=== PATIENT | male | born 1985 | race American Indian/Alaskan Native ===

== ENCOUNTER 2021-02-28 06:45 | Emergency (ER) | payer SELFPAY ==
[2021-02-28 09:18] LABS: BUN/Creatinine Ratio 13; Blood Urea Nitrogen 12 mg/dL (9-20); Calcium 9.1 mg/dL (8.4-10.2); Hemolysis Index 2
[2021-02-28 09:26] LABS: Basophils % (Auto) 0.3 % (0.0-1.8); Eosinophils # (Auto) 0.1 K/mm3 (0.0-0.4); Eosinophils % (Auto) 0.7 % (0.0-4.3); Hemoglobin 15.1 gm/dl (11.8-15.2); Lymphocytes # (Auto) 1.2 K/mm3 (1.2-5.4); Lymphocytes % (Auto) 7.9 % (13.4-35.0); Mean Corpuscular HGB Conc 34 % (32-34); Mean Corpuscular Volume 80 fl (84-94); Monocytes # (Auto) 2.1 K/mm3 (0.0-0.8); Monocytes % (Auto) 13.3 % (0.0-7.3); Platelet Count 274 K/mm3 (140-440); Red Blood Count 5.51 M/mm3 (3.65-5.03); Red Cell Distribution Width 13.7 % (13.2-15.2)
[2021-02-28] MEDS ORDERED: KETOROLAC 30 MG/1 ML INJ IV ONE (10:39)
--- NOTE | 2021-02-28 10:51 | Emergency Department Report ---
ED ENT HPI - General Chief complaint: Dental/Oral Stated complaint: SWOLLEN JAW/TOOTHACHE Time Seen by Provider: 02/28/21 10:36 Source: patient Mode of arrival: Ambulatory Limitations: No Limitations - History of Present Illness Initial comments: 36-year-old male presents to ED with toothache x2 days. Patient reports onset of left facial swelling on yesterday. Patient had a telemedicine appointment on yesterday and was given a prescription for Augmentin. Patient states he has taken 2 pills so far, since yesterday. Patient denies any fever. Patient states he has an appointment with the dentist in 2 days, on Tuesday. Patient woke up this morning with increased left facial swelling so he came to the ED for evaluation. MD complaint: tooth pain -: days(s) (2) Location: tooth # (19) Severity: severe Quality: aching Consistency: constant Improves with: none Worsens with: none Context- Dental: poor dental care Associated Symptoms: toothache. denies: fever - Related Data Allergies Allergy/AdvReac Type Severity Reaction Status Date / Time No Known Allergies Allergy Unverified 02/28/21 07:08 ED Dental HPI - General Chief complaint: Dental/Oral Stated complaint: SWOLLEN JAW/TOOTHACHE Time Seen by Provider: 02/28/21 10:36 Source: patient Mode of arrival: Ambulatory Limitations: No Limitations - Related Data Allergies Allergy/AdvReac Type Severity Reaction Status Date / Time No Known Allergies Allergy Unverified 02/28/21 07:08 ED Review of Systems ROS: Stated complaint: SWOLLEN JAW/TOOTHACHE Other details as noted in HPI Comment: All other systems reviewed and negative Constitutional: denies: fever ENT: as per HPI Gastrointestinal: denies: nausea, vomiting ED Past Medical Hx - Past Medical History Previous Medical History?: No - Surgical History Past Surgical History?: No - Social History Smoking Status: Current Every Day Smoker Substance Use Type: Alcohol ED Physical Exam - General Limitations: No Limitations General appearance: alert, in no apparent distress - Head Head exam: Present: atraumatic, normocephalic - Eye Eye exam: Present: normal appearance, EOMI - ENT ENT exam: Present: other (tooth #17 w/ caries present, tooth decayed down to the gum line, tender to percusssion; left mandibular swelling/induration present; no SUBmandibular induration on the right or left side; no submental induration; no elevation of tongue; slight trismus) - Neck Neck exam: Present: normal inspection - Respiratory Respiratory exam: Present: normal lung sounds bilaterally. Absent: respiratory distress - Cardiovascular Cardiovascular Exam: Present: normal rhythm, tachycardia - GI/Abdominal GI/Abdominal exam: Present: soft. Absent: distended, tenderness - Extremities Exam Extremities exam: Present: normal inspection - Neurological Exam Neurological exam: Present: alert, oriented X3 - Psychiatric Psychiatric exam: Present: normal affect, normal mood - Skin Skin exam: Present: warm, dry, intact, normal color ED Course Vital Signs 02/28/21 02/28/21 02/28/21 07:13 11:29 11:31 Temperature 98.3 F Pulse Rate 102 H Respiratory 18 Rate Blood Pressure 145/90 136/72 Blood Pressure [Left] O2 Sat by Pulse 98 99 99 Oximetry 02/28/21 02/28/21 11:33 12:31 Temperature Pulse Rate 76 Respiratory 16 Rate Blood Pressure 117/75 Blood Pressure 136/72 [Left] O2 Sat by Pulse 99 99 Oximetry - Consultations Consultation #1: 02/28/21 14:31 Spoke w/ Dr Dumont, [facility]. Will accept transfer to [facility] ER to evaluate pt. ED Medical Decision Making - Lab Data Result diagrams: 02/28/21 07:59 02/28/21 07:59 - Radiology Data Radiology results: report reviewed, image reviewed - Medical Decision Making 36-year-old male presents to ED with left lower molar tooth ache and facial swelling which has progressed significantly since yesterday, patient has some induration along the left mandibular area. No induration in the submental or right submandibular areas. Patient does have some trismus on exam, however airway is intact. CT scan shows abscess of tooth #18 with some stranding and thickening of the platysma. Due to patient's report of the progression of his swelling, WBCs of 15, and the abscess and stranding seen on CT. I am concerned for development of a Alberto's angina. I spoke with oral surgeon security control assessor at [facility], who agrees patient needs to be assessed in the ED. Patient will be transferred to [facility]. He has been given IV clindamycin and Toradol here in the ED. - Differential Diagnosis Abscess, dental caries, Alberto's angina Critical care attestation.: If time is entered above; I have spent that time in minutes in the direct care of this critically ill patient, excluding procedure time. ED Disposition Clinical Impression: Alberto's angina Disposition: [id number]/TX-[id number] ANOTHER TYPE [facility]ARE Is pt being admited?: No Condition: Stable Referrals: PRIMARY CARE, [Primary Care Provider] - 3-5 Days Time of Disposition: 14:38
--- NOTE | 2021-02-28 12:08 | Cat Scan Report ---
CT NECK WITH CONTRAST HISTORY: Left-sided facial swelling COMPARISON: None. TECHNIQUE: Routine CT of the neck is performed following intravenous contrast. All CT scans at this [facility] are performed using CT dose reduction for ALARA by means of automated exposure control CONTRAST: 100 mL Omnipaque 300 FINDINGS: Soft tissue swelling is seen in the left cheek with the subcutaneous stranding and thickening of the platysma. Middle ear cavity and mandible is sclerotic on the left side. The abscess seen around #30. Very thin abscess seen on the buccal side of the mandible the 20 mm thickness. No intraoral abscess. Reactive lymph nodes are seen bilaterally larger on the left side at level 1B. Skull Base: No significant abnormality. Parotid, Carotid, Retropharyngeal, Prevertebral, Pharyngeal Mucosal, and Wildlife [employer] Professor Spaces: No abnorm al mass, enhancing lesion or other significant abnormality. Airway: Patent and without significant abnormality. Lymphatics: No lymphadenopathy. Vasculature: No significant abnormality. Osseous Structures: No significant abnormality Additional findings: None. IMPRESSION: Root abscess around tooth #30; very thin soft tissue abscess on the buccal side of the mandible anter iorly; significant inflammatory changes in the left cheek Signer Name: Christopher Stacy MD Signed: 02/28/2021 12:03 PM Workstation Name: [id number]
[2021-02-28 18:08] VITALS: BP 153/87
== END 2021-02-28 18:08 | disposition other institution (70) ==
LOC: ED 06:45
DX: K12.2 Cellulitis and abscess of mouth (principal); F17.200 Nicotine dependence, unspecified, uncomplicated
CPT/HCPCS: 36415; 70491; 80048; 85025; 96365; 96366; 96375; 99285; J1885; Q9967